=== PATIENT | female | born 2005 | race Caucasian/White ===

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

== ENCOUNTER 2023-07-13 12:59 | Day surgery (SDC) | payer MEDICAID ==
[~2023-07-13] VITALS: Ht 154.9 cm; Wt 45.3 kg
[~2023-07-13 12:59] MED LIST: NEURONTIN100 MG/CAP PO
[2023-07-13] MEDS ORDERED: BUSPAR10 MG PO (13:44)
[2023-07-13] MEDS ORDERED: ATARAX 10MG10 MG/TAB PO (13:44)
[2023-07-13] MEDS ORDERED: PRILOSEC 20MG20 MG PO (13:45)
[2023-07-13] MEDS ORDERED: KEPPRA 500MG500 MG PO (13:45)
[2023-07-13] MEDS ORDERED: TYLENOL 500MG500 MG PO (13:46)
[2023-07-13] MEDS ORDERED: MASON NATURAL2000 IU PO (13:46)
[2023-07-13] MEDS ORDERED: IBU600 MG PO (13:46)
[2023-07-13] MEDS ORDERED: MULTIVITAMIN FO1 CAP PO (13:47)
[2023-07-13] MEDS ORDERED: BENADRYL25 M2 PO (13:47)
[2023-07-13 13:50] VITALS: BP 118/64; PULSE 82; TEMP 99.3
[2023-07-13 14:20] VITALS: BP 108/57; PULSE 75; TEMP 97.6
[2023-07-13 14:35] VITALS: BP 105/72; PULSE 74
--- NOTE | 2023-07-13 15:14 | NUR ---
1420-PATIENT ARRIVED VIA CART TO [facility], REMAINS IN CART D/T DROWSINESS. PT ANSWERS QUESTIONS APPROPRIATELY. VITAL SIGNS TAKEN, VSS. REPORT OBTAINED FROM SOSA NAVARRO. PATIENT DENIES PAIN, REPORTS MILD NAUSEA WITHOUT VOMITING AND MILD SORE THROAT. UPDATE GIVEN TO PATIENT AND FATHER AT BEDSIDE. 1435-PATIENT MORE ALERT AND ORIENTED, TOLERATING PO INTAKE WELL. DENIES COMPLAINTS 1445-DR. LÓPEZ AT BEDSIDE, PROCEDURE AND PLAN OF CARE DISCUSSED. DISCHARGE INSTRUCTIONS REVIEWED, QUESTIONS INVITED. IV CATHETER DISCONTINUED, TIP INTACT. PRESSURE HELD AND BANDAGE APPLIED. PATIENT DRESSED INDEPENDENTLY., 1457-PATIENT DISCHARGED HOME TO [facility] VIA WHEELCHAIR, ACCOMPANIED BY FATHER. ALL BELONGINGS AND DC PAPERWORK SENT WITH PT.
== END 2023-07-13 14:57 | disposition home or self-care (01) ==
LOC: SDCO 12:59
DX: R13.12 Dysphagia, oropharyngeal phase (principal); R10.13 Epigastric pain; R11.2 Nausea with vomiting, unspecified; R68.81 Early satiety; R04.2 Hemoptysis; Q79.60 Ehlers-Danlos syndrome, unspecified; F41.1 Generalized anxiety disorder; Z79.899 Other long term (current) drug therapy; Z87.891 Personal history of nicotine dependence
CPT/HCPCS: J2704; J7120